=== PATIENT | female | born 1945 | race Caucasian/White ===

== ENCOUNTER → 2017-02-10 | Outpatient (CLI) | payer MEDICARE, OTHER ==
[~2017-02-10] MED LIST: AMLO5TAB2 PO; ASPI-496 PO; ATOR10TA9 PO; CHOL10002 PO; DULO60CA7 PO; FURO-93 PO; GLIM2TAB2 PO; INSU100I13 SC; INSU500V SC; LOSA1TAB17 PO; METF100010 PO; MONT10TA6 PO; POTA20TA14 PO; PRAZ2CAP2 PO; SITA100T PO; TRAZ100T15 PO; VITA100022 PO
[2017-02-10 10:57] LABS: BLOOD UREA NITROGEN 11 mg/dL (7-18)
[2017-02-10 11:01] LABS: ASPARTATE AMINO TRANSFERASE 9 U/L (15-37)
[2017-02-10 11:02] LABS: PATH.CAST-FLAG NOT PRESENT; SPERM-FLAG NOT PRESENT; SRC-FLAG NOT PRESENT; XTAL-FLAG NOT PRESENT; YLC-FLAG NOT PRESENT
== END | disposition home or self-care (01) ==
LOC: STAR 09:31
PROVIDERS: ATTEND Orthopaedic Surgery Orthopaedic Surgery of the Spine
DX: Z01.818 Encounter for other preprocedural examination (principal); R94.31 Abnormal electrocardiogram [ECG] [EKG]; I51.7 Cardiomegaly; I70.0 Atherosclerosis of aorta; M46.1 Sacroiliitis, not elsewhere classified; M19.90 Unspecified osteoarthritis, unspecified site; J45.909 Unspecified asthma, uncomplicated; E11.9 Type 2 diabetes mellitus without complications; Z79.899 Other long term (current) drug therapy
CPT/HCPCS: 36415; 71020; 80053; 81001; 85025; 93005

== ENCOUNTER 2017-02-18 05:36 | Inpatient (IN) | payer MEDICARE, OTHER ==
[~2017-02-18] VITALS: Ht 160 cm; Wt 114.9 kg
[2017-02-18] MEDS ORDERED: LACTATED RINGERS 1,000 ML IV SCH (06:05)
[2017-02-18] MEDS ORDERED: BACITRACIN OINT 500U/GM, 15 GM ONE (06:48)
[2017-02-18] MEDS ORDERED: BUPIVACAINE/PF-EPI 0.5% 1:200K ONE (06:48)
[2017-02-18] MEDS ORDERED: FENTANYL PF 250 MCG/5ML ONE (07:12)
[2017-02-18] MEDS ORDERED: MIDAZOLAM 1 MG/ML, 2ML ONE (07:12)
[2017-02-18] MEDS ORDERED: PROMETHAZINE 25 MG/ML, 1ML IV PRN (07:30)
[2017-02-18] MEDS ORDERED: OXYcodone 5 MG/5 ML ORAL.SOL UDC PO PRN (07:30)
[2017-02-18] MEDS ORDERED: LABETALOL 5MG/ML, 20ML IV PRN (07:30)
[2017-02-18] MEDS ORDERED: ACETAMINOPHEN 325 MG TABLET PO PRN (07:30)
[2017-02-18] MEDS ORDERED: ONDANSETRON 2MG/ML, 2ML IVPush PRN (07:30)
[2017-02-18] MEDS ORDERED: hydrALAzine 20 MG/ML, 1ML IV PRN (07:30)
[2017-02-18] MEDS ORDERED: ALBUTEROL/IPRATROPIUM 2.5MG/0.5MG, 3 ML NPPB PRN (07:30)
[2017-02-18] MEDS ORDERED: CEFAZOLIN 1,000 MG ONE (07:50)
[2017-02-18] MEDS ORDERED: ONDANSETRON 2MG/ML, 2ML ONE (07:50)
[2017-02-18] MEDS ORDERED: SUCCINYLCHOLINE 20 MG/ML, 10ML ONE (07:50)
[2017-02-18] MEDS ORDERED: PROPOFOL 10 MG/ML, 20ML ONE (07:50)
[2017-02-18] MEDS ORDERED: ROCURONIUM 10 MG/ML ONE (07:50)
[2017-02-18] MEDS ORDERED: DIPHENHYDRAMINE 25 MG CAPSULE PO PRN (08:30)
[2017-02-18] MEDS ORDERED: morphine SULFATE 10 MG/ML, 1ML IV PRN (08:30)
[2017-02-18] MEDS ORDERED: SENNA/DOCUSATE TABLET PO PRN (08:30)
[2017-02-18] MEDS ORDERED: HYDROcodone/APAP 5/325 TABLET PO PRN (08:30)
[2017-02-18] MEDS ORDERED: LORazepam 2 MG/ML, 1ML IV PRN (08:30)
[2017-02-18] MEDS ORDERED: ONDANSETRON 2MG/ML, 2ML IV PRN (08:30)
[2017-02-18] MEDS ORDERED: BISACODYL 10 MG SUPP PR PRN (08:30)
[2017-02-18] MEDS ORDERED: MAGNESIUM HYDROXIDE 8%, 30ML UDC PO PRN (08:30)
[2017-02-18] MEDS ORDERED: PROMETHAZINE 25 MG/ML, 1ML IM PRN (08:30)
[2017-02-18] MEDS: MONTELUKAST 10 MG TABLET PO SCH (09:00)
[2017-02-18] MEDS: CHOLECALCIFEROL 1,000 UNIT TABLET PO SCH (09:00)
[2017-02-18] MEDS: DULOXETINE 30 MG CAPSULE.DR PO SCH (09:00)
[2017-02-18] MEDS: DOCUSATE 100 MG CAPSULE PO SCH ×2 (09:00→20:46)
[2017-02-18] MEDS: LOSARTAN 50MG TABLET PO SCH (09:00)
[2017-02-18] MEDS: metFORMIN 500 MG TABLET PO SCH ×2 (09:00→20:47)
[2017-02-18] MEDS: SITAGLIPTIN 50MG TABLET PO SCH (09:00)
[2017-02-18] MEDS: FUROSEMIDE 20 MG TABLET PO SCH (09:00)
[2017-02-18] MEDS: GLIMEPIRIDE 1 MG TABLET PO SCH ×2 (09:00→20:46)
[2017-02-18] MEDS: POTASSIUM CHLORIDE 20 MEQ TAB.ER.PRT PO SCH ×2 (09:00→20:47)
[2017-02-18] MEDS: FENTANYL PF 100 MCG/2ML IV PRN ×2 (09:10→09:41)
[2017-02-18] MEDS ORDERED: HYDROmorphone 1 MG/ML, 1ML ONE (09:22)
[2017-02-18] MEDS ORDERED: FENTANYL PF 100 MCG/2ML ONE (09:22)
[2017-02-18] MEDS ORDERED: OXYcodone 5 MG/5 ML ORAL.SOL UDC ONE (09:22)
[2017-02-18] MEDS: HYDROmorphone 1 MG/ML, 1ML IV PRN ×2 (09:40→09:57)
[2017-02-18] MEDS: INSULIN ASPART 100 UNITS/ML, PEN SQ-INSULIN SCH ×2 (11:15→21:00)
[2017-02-18] MEDS: VITAMIN E ACETATE HOMEMEDPO SCH (12:00)
[2017-02-18] MEDS: SODIUM CHLORIDE 0.9% 1,000 ML IV SCH ×2 (12:06→20:57)
[2017-02-18 14:00] VITALS: BP 101/71
[2017-02-18] MEDS: CEFAZOLIN PMX 2GM/50ML 50 ML IVPB SCH ×2 (16:36→23:18)
[2017-02-18] MEDS: OXYcodone/APAP 5/325MG TABLET PO PRN (16:36)
[2017-02-18 19:32] VITALS: BP 136/80
[2017-02-18] MEDS ORDERED: AMLODIPINE 5 MG TABLET PO SCH (21:00)
[2017-02-18] MEDS ORDERED: PRAZOSIN 2 MG CAPSULE PO SCH (21:00)
[2017-02-18] MEDS ORDERED: ATORVASTATIN 10 MG TABLET PO SCH (21:00)
[2017-02-18] MEDS ORDERED: TRAZODONE 100MG TABLET PO SCH (21:00)
[2017-02-18] MEDS ORDERED: INSULIN DETEMIR 100 UNITS/ML, PEN SQ-INSULIN SCH (21:00)
[2017-02-18 23:01] VITALS: BP 130/76
[2017-02-19] MEDS: OXYcodone/APAP 5/325MG TABLET PO PRN ×2 (02:42→03:30)
[2017-02-19 03:03] VITALS: BP 114/71
[2017-02-19 06:50] VITALS: BP 126/69
[2017-02-19] MEDS: SODIUM CHLORIDE 0.9% 1,000 ML IV SCH (08:00)
[2017-02-19] MEDS: CEFAZOLIN PMX 2GM/50ML 50 ML IVPB SCH (08:14)
[2017-02-19] MEDS: INSULIN ASPART 100 UNITS/ML, PEN SQ-INSULIN SCH (08:15)
[2017-02-19] MEDS: VITAMIN E ACETATE HOMEMEDPO SCH (08:15)
[2017-02-19] MEDS: CHOLECALCIFEROL 1,000 UNIT TABLET PO SCH (08:15)
[2017-02-19] MEDS: POTASSIUM CHLORIDE 20 MEQ TAB.ER.PRT PO SCH (08:16)
[2017-02-19] MEDS: FUROSEMIDE 20 MG TABLET PO SCH (08:16)
[2017-02-19] MEDS: LOSARTAN 50MG TABLET PO SCH (08:16)
[2017-02-19] MEDS: GLIMEPIRIDE 1 MG TABLET PO SCH (08:16)
[2017-02-19] MEDS: metFORMIN 500 MG TABLET PO SCH (08:16)
[2017-02-19] MEDS: SITAGLIPTIN 50MG TABLET PO SCH (08:17)
[2017-02-19] MEDS: DOCUSATE 100 MG CAPSULE PO SCH (08:17)
[2017-02-19] MEDS: DULOXETINE 30 MG CAPSULE.DR PO SCH (08:17)
[2017-02-19] MEDS: MONTELUKAST 10 MG TABLET PO SCH (08:17)
[2017-02-19 10:48] VITALS: BP 105/75
== END 2017-02-19 11:42 | disposition home or self-care (01) | DRG 460 ==
LOC: OUT 05:36 → ORIP 08:01 → 4NOR 10:24 → DCLOUNGE 02-19 11:14
PROVIDERS: ADMIT Orthopaedic Surgery Orthopaedic Surgery of the Spine; ATTEND Orthopaedic Surgery Orthopaedic Surgery of the Spine
PROC: 0SG707Z Fusion of Right Sacroiliac Joint with Autologous Tissue Substitute, Open Approach (ICD-10-PCS; principal; 2017-02-18 07:30)
DX: M46.1 Sacroiliitis, not elsewhere classified (principal); Z68.41 Body mass index [BMI] 40.0-44.9, adult; E66.01 Morbid (severe) obesity due to excess calories; M19.90 Unspecified osteoarthritis, unspecified site
CPT/HCPCS: 36415; 72202; 76000; 82962; 85018; J0690; J1170; J1815; J2250; J2405; J2704; J3010; C1762; C1776; J0330; J2060; J7030; J7120